=== PATIENT | female | born 1975 | race Asian ===

== ENCOUNTER 2017-08-01 00:50 | Emergency (ER) | payer OTHER ==
[~2017-08-01] VITALS: Ht 160 cm; Wt 68.2 kg
[2017-08-01 00:51] VITALS: TEMP 98.6
[2017-08-01 01:07] LABS: BASO # 0.1 (0.0-0.2); EOS # 0.2 (0.0-0.7); EOS % 2.1 % (0-4.0); GRAN # 6.7 (1.4-6.5); GRAN % 66.1 % (42.2-75.2); HEMATOCRIT 37.6 % (37.0-47.0); HEMOGLOBIN 12.5 g/dl (12.5-16.0); LYMPH # 2.4 (1.2-3.4); LYMPH % 23.5 % (20.0-51.0); MEAN CELL VOLUME 88 fl (80.0-100.0); MEAN CORPUSCULAR HEMOGLOBIN 29 pg (27.0-31.0); MEAN CORPUSCULAR HGB CONC 33 g/dl (33.0-37.0); MEAN PLATELET VOLUME 9.8 fl (7.4-10.4); MONO # 0.7 (0.1-0.6); PLATELET COUNT 316 K/mm3 (130-400); RED BLOOD COUNT 4.26 M/mm3 (4.10-5.30); REDCELL DISTRIBUTION WIDTH-CV 13.7 % (11.5-14.5)
[2017-08-01 01:18] LABS: ALBUMIN 3.7 gm/dL (3.5-5.0); BILIRUBIN,TOTAL 0.3 mg/dL (0.0-1.0); CALCIUM 9.2 mg/dL (8.4-10.2); CREATININE, serum 0.76 mg/dL (0.52-1.25); POTASSIUM 3.6 mmol/L (3.4-5.0); TOTAL PROTEIN 7.2 gm/dL (6.4-8.2)
[2017-08-01 02:03] LABS: COLLECTION METHOD CLEAN CATCH
[2017-08-01 02:11] LABS: AMORPHOUS CRYSTAL Present /uL; MUCOUS Present /lpf; PH 6 (5-8); SQUAMOUS EPITHELIAL 0-2 /hpf; URINE APPEARANCE Hazy; URINE BACTERIA Rare /hpf; URINE BILIRUBIN Negative (NEGATIVE); URINE BLOOD Negative (NEGATIVE); URINE COLOR Yellow; URINE GLUCOSE Negative (NEGATIVE); URINE KETONE Trace (NEGATIVE); URINE LEUKOCYTE ESTERASE Trace (NEGATIVE); URINE NITRATE Negative (NEGATIVE); URINE PROTEIN(semi-quant) Negative (NEGATIVE); URINE RBC 0-2 /hpf; URINE UROBILINOGEN Negative (NEGATIVE)
[2017-08-01] MEDS ORDERED: BENTYL 20MG20 MG/TAB PO (03:46)
[2017-08-01 04:00] VITALS: BP 99/56; PULSE 84
== END 2017-08-01 04:02 | disposition home or self-care (01) ==
LOC: COL.ER 00:50 → EDBD 00:51 → COL.ER 00:51
PROVIDERS: Emergency Medicine
DX: R10.84 Generalized abdominal pain (principal)
CPT/HCPCS: J2765; J3010; J7030; Q9967

== ENCOUNTER 2017-09-29 12:28 | Day surgery (SDC) | payer OTHER ==
[~2017-09-29] VITALS: Ht 160 cm; Wt 80.7 kg
[2017-09-29] VITALS (7 sets, daily range): BP systolic 93–113; BP diastolic 51–81; PULSE 56–83; TEMP 97–97.3
[~2017-09-29 12:28] MED LIST: BENTYL 20MG20 MG/TAB PO
[2017-09-29] MEDS ORDERED: PRIL40 (14:34)
[2017-09-29] MEDS ORDERED: BENEFIBER PO (15:39)
[2017-09-29] MEDS ORDERED: MIRALAX PA17 GM/Dose PO (15:40)
== END 2017-09-29 16:30 | disposition home or self-care (01) ==
LOC: SDCO 12:28
DX: R10.9 Unspecified abdominal pain (principal); K21.0 Gastro-esophageal reflux disease with esophagitis; K30 Functional dyspepsia; K59.00 Constipation, unspecified; R14.0 Abdominal distension (gaseous)
CPT/HCPCS: OP; J2250; J2405; J3010; J7030

== ENCOUNTER → 2018-03-13 | Outpatient (CLI) | payer OTHER ==
[~2018-03-13] MED LIST changes: +BENEFIBER PO; +MIRALAX PA17 GM/Dose PO; +PRIL40
== END ==
LOC: COL.RAD 09:45
DX: R10.11 Right upper quadrant pain (principal)